=== PATIENT | female | born 1970 | race Caucasian/White ===

== ENCOUNTER 2024-10-27 13:22 | Outpatient (AMB) | payer OTHER, SELFPAY ==
--- NOTE | 2024-10-27 13:38 | ORTHONT_ITS ---
Vital signs 10/27/24 13:39 Height 1.8 m Height Method Stated Weight 118.416 kg Weight Measurement Method Standing Scale BMI 36.5 BP 147/92 H Blood Pressure Source Automatic Cuff Blood Pressure Location Right Upper Arm Position Sitting Respiration 18 Pulse 72 Pulse Source Monitor Temp 97.6 F Temp Source Temporal Artery Scan Pulse Oximetry (%) 96 Oxygen Delivery Method Room Air Med/Allergies Allergies & Medications Allergies acetaminophen [From [place]] Allergy (Verified 10/27/24 13:41) Migraine hydrocodone [From [place]] Allergy (Verified 10/27/24 13:41) Migraine morphine Allergy (Verified 10/27/24 13:41) Migraine Medication Reconciliation hydrocodone 5 mg-acetaminophen 325 mg tablet 1 tab PO BID PRN pain #10 tabs 04/26/24 [Rx Confirmed 10/27/24] ibuprofen 800 mg tablet 800 mg PO TID PRN pain #30 tabs 04/26/24 [Rx Confirmed 10/27/24] albuterol sulfate 90 mcg/actuation aerosol inhaler 1 puff inhalation Q4H PRN breathing 05/29/24 [History Confirmed 10/27/24] atorvastatin 10 mg tablet 10 mg PO QDAY 05/29/24 [History Confirmed 10/27/24] buspirone 10 mg tablet 10 mg PO BID 05/29/24 [History Confirmed 10/27/24] duloxetine 30 mg capsule,delayed release 90 mg PO QDAY 05/29/24 [History Confirmed 10/27/24] famotidine 40 mg tablet 40 mg PO HS 05/29/24 [History Confirmed 10/27/24] fluticasone propionate 50 mcg/actuation nasal spray,suspension 1 spray intranasal DAILY 05/29/24 [History Confirmed 10/27/24] levothyroxine 125 mcg tablet 125 mcg PO QDAY 05/29/24 [History Confirmed 10/27/24] losartan 50 mg tablet 50 mg PO QDAY 05/29/24 [History Confirmed 10/27/24] montelukast 10 mg tablet 10 mg PO HS 05/29/24 [History Confirmed 10/27/24] naratriptan 2.5 mg tablet 2.5 mg PO QDAY PRN Migraine Headache 05/29/24 [History Confirmed 10/27/24] pantoprazole 40 mg tablet,delayed release 40 mg PO BID 05/29/24 [History Confirmed 10/27/24] propranolol 40 mg tablet 40 mg PO BID 05/29/24 [History Confirmed 10/27/24] pseudoephedrine HCl 60 mg tablet (Sudogest) mg 05/29/24 [History Confirmed 10/27/24] quetiapine 50 mg tablet 50 mg PO HS 05/29/24 [History Confirmed 10/27/24] quetiapine 50 mg tablet mg 05/29/24 [History Confirmed 10/27/24] quetiapine 50 mg tablet mg 05/29/24 [History Confirmed 10/27/24] semaglutide 2 mg/dose (8 mg/3 mL) subcutaneous pen injector (Ozempic) 8 mg subcut QWEEK 05/29/24 [History Confirmed 10/27/24] apixaban 2.5 mg tablet (Eliquis) 2.5 mg PO BID #30 tabs 05/30/24 [Rx Confirmed 10/27/24] Exam Exam Patient is in no acute distress and is cooperative with the examination today. Patient has a normal mood and affect. Breathing is nonlabored. In no respiratory distress. Bilateral extremities were evaluated and demonstrates sensation intact to light touch. Palpable pedal pulses are present. No significant edema is present. Left knee range of motion is 0 to 95 degrees. She is able to perform a straight leg raise. There is no extensor lag. Quad strength is 3 out of 5 on the left and 4 out of 5 on the right. The strength is asymmetric on the left. I reviewed the patient's MRI which is dated today 10/27/2024. She has no report with her. In my opinion this demonstrates rerupture of the quad. It is not significantly retracted. Assessment and Plan Problem List (1) Quadriceps muscle rupture: Status: Acute Plan: Patient is a 54-year-old female with a left quadriceps tendon rupture status post repair in June. She is 4 months out from surgery. She reports that around the 3-month mehnaz she felt like her knee did give out. She is able to perform a straight leg raise but it is weaker and MRI findings in my opinion d emonstrate a quadriceps tendon rerupture. I will talk wAbbeyith her Worker's Compensation doctor Dr. Uribe to discuss the results. I think she may need a revision of her repair. Her quad strength and straight leg raise Is significantly better than preop but is certainly weaker than I would like to see at this point. I have a feeling it is a rerupture based on both clinical and imaging findings and we will discuss with Dr. Nieves with options are. Office Procedures GNS Level of Care Nursing/Assessment Patient Status: Established Patient Nursing Assessment/Reassesment: Medication Reconciliation, Update PMH in EMR and Vital Signs Coordination of Care: Complex Care and Chronic Disease 1-5, Education Complex Pt/Fam, Consent,records obtained, informed consent, Results/Orders obtained and Staff clarify orders Established Patient Charge Established Patient Point Assignment: 95 Established Patient Point Charge: EP Level 3 (80-115) MA Intake Visit Data Collection New Patient or Established: Established Patient (seen at [facility] within 3 years) Reason for Visit:: F/U Seen by Clinical Staff ONLY (RN/MA): No PCP or OBGYN visit in last 3 months: Yes Hx Now: No Do You Feel Safe at Home: Yes Authorities Contacted: N/A Questionairres Past Medical History Past Medical History Have you ever been diagnosed with any of the following: Neurological Problems Seizures: No Cardiology Problems Congestive Heart Failure: No Respiratory Problems Chronic Obstructive Pulmonary Disease (COPD): No Genital/Urinary Problems Renal Disease: No Endocrine Problems Diabetes Mellitus Type 1: No Diabetes Mellitus Type 2: Yes Psychologic Problems Depression: Yes Anxiety: Yes Other Problems Blood Transfusions: No Blood Transfusion Reaction: No Anesthesia Reactions: No Subjective Visit Visit for: follow up visit Immunization / Flu Flu Vaccine in the Last 12 Months: No Flu Vaccine Exclusion Criteria: No Exclusion Criteria History of Present Illness Chief complaint: Left knee pain Jolly is a 54-year-old Female who is 4 months status post left quadriceps tendon repair. This was a Co. case with Dr. Uribe. She did well initially and saw Dr. Nieves for postoperative follow-up due to the fact that this is a Worker's Comp. case and we do not take it at our clinic. We were able to get a good repair IntraOp. She reports that she did well until August where she was making a step with physical therapy and felt like her knee gave out. She is still able to perform a straight leg raise but reports that the leg is weaker and that she feels like she is going to fall more often. She is still using her hinged knee brace when she walks and has a limp Pain Pain level (0-10): 4 Pain duration: COMES AND GOES Pain location: inside (medial) Pain quality: dull and aching Pain timing: increases with activity Associated signs & symptoms: none Ambulatory data Ambulatory device: none Treatments Improvement with previous injections: No Improvement with PT: No Improvement with NSAIDS: no Review of Systems Review of Systems: All systems negative unless otherwise noted in HPI.
[2024-10-27 13:39] VITALS: BP 147/92; PULSE 72; RESP 18; TEMP 36.4; O2SAT 96; BMI 36.5
== END 2024-10-27 14:02 | disposition home or self-care (01) ==
PROVIDERS: Supervising Provider Orthopaedic Surgery Adult Reconstructive Orthopaedic Surgery; Visit Provider Orthopaedic Surgery Adult Reconstructive Orthopaedic Surgery
DX: S76.112D Strain of left quadriceps muscle, fascia and tendon, subsequent encounter (principal); X58.XXXD Exposure to other specified factors, subsequent encounter; M25.562 Pain in left knee; Z98.890 Other specified postprocedural states; E11.9 Type 2 diabetes mellitus without complications
CPT/HCPCS: 99213; G0463

== ENCOUNTER → 2025-03-29 | Outpatient (CLI) | payer OTHER, SELFPAY ==
[2025-03-29 09:10] LABS: Collection Type, Urine Clean Catch
[2025-03-29 09:19] LABS: Basophils % (Auto) 0 % (0-2.5); Eosinophils # (Auto) 0.1 Thou/mm3 (0.0-0.5); Eosinophils % (Auto) 2 % (0-10); Hematocrit 39.3 % (36.0-46.0); Hemoglobin 13.5 g/dL (12.0-16.0); Immature Granulocytes % (Auto) 1 % (0-0); Immature Granulocytes Auto 0.04 Thou/mm3 (0.00-0.00); Lymphocytes # (Auto) 1.4 Thou/mm3 (1.0-4.8); Lymphocytes % (Auto) 18 % (10-50); Mean Corpuscular HGB Conc 34.4 g/dl (31.0-37.0); Mean Corpuscular Hemoglobin 30.8 pg (25.0-35.0); Mean Corpuscular Volume 90 fL (80-100); Monocytes # (Auto) 0.7 Thou/mm3 (0.0-0.8); Monocytes % (Auto) 9 % (0-12); Neutrophils # (Auto) 5.6 Thou/mm3 (1.8-7.7); Neutrophils % (Auto) 71 % (37-80); Nucleated Red Blood Cell % 0 /100 WBC (0); Platelet Count 312 Thou/mm3 (140-440); RDW Standard Deviation 47.1 fL (36.4-46.3); Red Blood Count 4.39 Miln/mm3 (4.00-5.20); White Blood Count 7.9 Thou/mm3 (3.6-11.0)
--- NOTE | 2025-03-29 09:19 | EKG_ITS ---
[facility] Test Date: 2025-03-29 Pat Name: AKIL WAGNER Department: Room: - Gender: Female Retail Aide: SOMMER : 1970 Requested By: Mitch Aguilar Order Number: [id number] Reading MD: Mitch Aguilar Measurements Intervals Shirley Rate: 69 P: 43 WI: 178 QRS: 4 QRSD: 104 T: 34 QT: 372 QTc: 399 Interpretive Statements SINUS RHYTHM Compared to ECG 05/30/2024 18:20:33 No significant changes /store/S0/[id number].pdf
[2025-03-29 09:31] LABS: Bacteria,Urine Rare; Bilirubin,Urine Negative (Negative); Blood,Urine Negative (Negative); Clarity,Urine Clear (Clear/Hazy); Color,Urine Lt-Yellow (Lt Yel-Yel); Glucose, Urine Negative (Negative); Ketones,Urine Negative (Negative); Leukocyte Esterase,Urine Negative (Negative); Nitrite,Urine Negative (Negative); PH,Urine 6.5 (5.0-7.0); Protein,Urine Negative (Neg - Trace); RBC,Urine 2 /hpf (0-3); Specific Gravity,Urine 1.016 (1.001-1.035); Squamous Epithelial Cell,Urine 3 /hpf (0-5); Urobilinogen,Urine Negative mg/dL (0.0-1.0); WBC,Urine 1 /hpf (0-5)
[2025-03-29 09:37] LABS: Partial Thromboplastin Time 26.8 Seconds (22.0-36.0); Prothrombin Time 10.6 Seconds (9.0-12.2)
[2025-03-29 09:40] LABS: Alanine Aminotransferase 30 U/L (10-49); Albumin, Serum 4.1 gm/dL (3.5-5.0); Alkaline Phosphatase 58 U/L (46-116); Anion Gap 9 (7-16); BUN/Creatinine Ratio 19 Ratio (12-20); Bilirubin,Total 0.5 mg/dL (0.3-1.2); Blood Urea Nitrogen 13 mg/dL (9-23); Calcium 9.1 mg/dL (8.3-10.6); Calcium (Corrected) 9.1 mg/dL (8.5-10.1); Carbon Dioxide 26.4 mMol/L (20.0-31.0); Chloride 104 mMol/L (98-107); Creatinine (Component) 0.7 mg/dL (0.6-1.3); Globulin 2.1 gm/dL (2.3-3.5); Glucose 102 mg/dL (74-106); Osmolality,Calculated 277 (275-295); Potassium 3.9 mMol/L (3.4-5.1); Sodium 139 mMol/L (136-145); Total Protein 6.2 gm/dL (5.7-8.2); eGFR > 60 See Note
== END | disposition home or self-care (01) ==
PROVIDERS: PCP Nurse Practitioner Family; Referring Provider Orthopaedic Surgery; Visit Provider Orthopaedic Surgery
DX: M22.40 Chondromalacia patellae, unspecified knee (principal)
CPT/HCPCS: 36415; 80053; 81001; 85025; 85610; 85730; 93005